=== PATIENT | female | born 1940 | race Hispanic/Latino ===

== ENCOUNTER → 2019-02-18 | Outpatient (CLI) | payer OTHER, MEDICARE ==
[~2019-02-18] MED LIST: OMEP20CA10 PO; ONDA8TAB5 PO; SIMV20TA6 PO
== END | disposition home or self-care (01) ==
LOC: SHCH 15:25
PROVIDERS: ATTEND Internal Medicine Cardiovascular Disease
DX: J44.9 Chronic obstructive pulmonary disease, unspecified (principal); I51.7 Cardiomegaly
CPT/HCPCS: 93306

== ENCOUNTER → 2019-02-20 | Outpatient (CLI) | payer SELFPAY ==
[~2019-02-20] MED LIST changes: +GLYCOPYRROLATE 1 MG/5 ML SYRINGE ONE; +NEOSTIGMINE 5MG/5ML SYR IV ONE
== END | disposition home or self-care (01) ==
LOC: OIH 13:56
PROVIDERS: ATTEND Internal Medicine Cardiovascular Disease
DX: Z13.6 Encounter for screening for cardiovascular disorders (principal)
CPT/HCPCS: 75571; J2710; J3490

== ENCOUNTER 2019-11-09 14:34 | Emergency (ER) | payer OTHER, MEDICARE ==
[~2019-11-09 14:34] MED LIST changes: -GLYCOPYRROLATE 1 MG/5 ML SYRINGE ONE; -NEOSTIGMINE 5MG/5ML SYR IV ONE; -OMEP20CA10 PO; +OMEP20CA12 PO; +SIMV-43 PO; -SIMV20TA6 PO
[2019-11-09 15:13] LABS: BASOPHILS % (AUTO) 0.3 % (0.0-5.0); EOSINOPHILS % (AUTO) 4.5 % (0.0-8.0); HEMATOCRIT 40.1 % (36-48); LYMPHOCYTES % (AUTO) 25.7 % (21.0-51.0); MEAN CORPUSCULAR HEMOGLOBIN 26.8 pg (27.0-33.0); MEAN CORPUSCULAR HGB CONC 32.2 g/dL (32.0-36.0); MEAN CORPUSCULAR VOLUME 83.2 fL (79-99); MONOCYTES % (AUTO) 6.7 % (3.0-13.0); NEUTROPHILS % (AUTO) 62.5 % (40.0-77.0); PLATELET COUNT (AUTO) 298 K/uL (130-400); RED BLOOD CELL COUNT(AUTO) 4.82 MIL/uL (4.00-5.50); RED CELL DISTRIBUTION WIDTH 14.6 % (11.0-15.5); WHITE BLOOD COUNT (AUTO) 11.9 K/uL (4.8-10.8)
[2019-11-09 15:18] LABS: APPEARANCE,URINE Clear (CLEAR); BILIRUBIN,URINE Negative (NEGATIVE); COLOR,URINE Yellow (YELLOW); GLUCOSE, URINE (UA) Negative (NEGATIVE); KETONES,URINE Negative (NEGATIVE); LEUKOCYTE ESTERASE ,URINE Negative (NEGATIVE); NITRATE,URINE Negative (NEGATIVE); OCCULT BLOOD,URINE Negative (NEGATIVE); PROTEIN,URINE Negative (NEGATIVE); UROBILINOGEN,URINE 0.2 mg/dL (0.2-1.0)
[2019-11-09 15:28] LABS: INR 0.95 (0.85-1.15); PARTIAL THROMBOPLASTIN TIME 26.8 SEC (26.3-35.5)
[2019-11-09] MEDS ORDERED: SODIUM CHLORIDE 0.9% 500ML 500 ML IV ONE (15:34)
[2019-11-09] MEDS ORDERED: ONDANSETRON HCL 4 MG/2 ML VIAL ONE (15:34)
[2019-11-09 15:51] LABS: POTASSIUM 4.2 mmol/L (3.5-5.1)
[2019-11-09 15:54] LABS: ALBUMIN 3.6 g/dL (3.5-5.0); BILIRUBIN,TOTAL 0.5 mg/dL (0.2-1.0); TOTAL PROTEIN, SERUM 7.7 g/dL (6.0-8.3)
[2019-11-09] MEDS ORDERED: TETANUS IMMUNE GLOBULIN 250 UNIT SYRINGE IM ONE (17:34)
== END 2019-11-09 19:45 | disposition home or self-care (01) ==
LOC: EDH 14:34
DX: M62.81 Muscle weakness (generalized) (principal); R11.0 Nausea; R10.9 Unspecified abdominal pain; J44.9 Chronic obstructive pulmonary disease, unspecified; E78.5 Hyperlipidemia, unspecified; Z87.891 Personal history of nicotine dependence; Z90.49 Acquired absence of other specified parts of digestive tract; Z98.890 Other specified postprocedural states; Z88.6 Allergy status to analgesic agent; Z88.0 Allergy status to penicillin
CPT/HCPCS: 36415; 71046; 74176; 80053; 81003; 82150; 82550; 83605; 83690; 83880; 84484; 85025; 85610; 85730; 87804 ×2; 93005; 96361; 96374; 99285; J1670; J2405; J7040

== ENCOUNTER 2020-02-04 12:32 | Emergency (ER) | payer OTHER, MEDICARE ==
[2020-02-04 13:48] LABS: BASOPHILS % (AUTO) 0.4 % (0.0-5.0); EOSINOPHILS % (AUTO) 1.8 % (0.0-8.0); HEMATOCRIT 44.7 % (36-48); LYMPHOCYTES % (AUTO) 15.4 % (21.0-51.0); MEAN CORPUSCULAR HEMOGLOBIN 27.3 pg (27.0-33.0); MEAN CORPUSCULAR HGB CONC 33.3 g/dL (32.0-36.0); MONOCYTES % (AUTO) 7.7 % (3.0-13.0); NEUTROPHILS % (AUTO) 74.2 % (40.0-77.0); PLATELET COUNT (AUTO) 260 K/uL (130-400); RED BLOOD CELL COUNT(AUTO) 5.45 MIL/uL (4.00-5.50); RED CELL DISTRIBUTION WIDTH 14.8 % (11.0-15.5); WHITE BLOOD COUNT (AUTO) 11.4 K/uL (4.8-10.8)
[2020-02-04 14:00] LABS: CARBON DIOXIDE 27 mmol/L (21-32); CHLORIDE 93 mmol/L (101-111); CREATININE 1.1 mg/dL (0.5-1.5); GLOMERULAR FILTR. RATE CALC 51 mL/min (>60); GLUCOSE,RANDOM 120 mg/dL (70-105); POTASSIUM 4.2 mmol/L (3.5-5.1); SODIUM SERUM 128 mmol/L (136-145); UREA NITROGEN, BLOOD 7 mg/dL (7-18)
[2020-02-04] MEDS ORDERED: LEVOFLOXACIN 500 MG/D5W 100 ML 100 ML ONE (14:04)
[2020-02-04] MEDS ORDERED: METHYLPREDNISOLONE SOD SUCC 125MG/2ML VIAL ONE (14:04)
[2020-02-04 14:12] LABS: ALANINE AMINOTRANSFERASE 20 U/L (12-78); ALBUMIN 3.6 g/dL (3.5-5.0); ASPARTATE AMINOTRANSFERASE 29 U/L (10-37); BILIRUBIN,TOTAL 0.7 mg/dL (0.2-1.0); CREATINE KINASE, TOTAL 57 U/L (21-232); MYOGLOBIN 55 ng/mL (10-92); TOTAL PROTEIN, SERUM 7.6 g/dL (6.0-8.3); TROPONIN I < 0.04 ng/mL (0.00-0.06)
[2020-02-04 15:00] LABS: INR 1.05 (0.85-1.15); PARTIAL THROMBOPLASTIN TIME 31.7 SEC (26.3-35.5); PROTHROMBIN TIME 11.3 SEC (9.6-11.6)
[2020-02-04 15:13] LABS: ABG BASE EXCESS -0.3 mmol/L (-2.0-3.0); ABG HCO3 22.6 mmol/L (21.0-28.0); ABG OXYGEN SATURATION 97.9 % (95.0-99.0); ABG PCO2 32 mmHg (32-45)
[2020-02-04 15:14] LABS: APPEARANCE,URINE Clear (CLEAR); BILIRUBIN,URINE Negative (NEGATIVE); COLOR,URINE Yellow (YELLOW); GLUCOSE, URINE (UA) Negative (NEGATIVE); KETONES,URINE 15 mg/dL (NEGATIVE); LEUKOCYTE ESTERASE ,URINE Trace (NEGATIVE); NITRATE,URINE Negative (NEGATIVE); OCCULT BLOOD,URINE Negative (NEGATIVE); PROTEIN,URINE Negative (NEGATIVE); UROBILINOGEN,URINE 0.2 mg/dL (0.2-1.0)
[2020-02-04 15:48] LABS: BACTERIA,URINE Rare /HPF (None Seen); SQUAMOUS EPITHELIAL CELL,UR 0-2 /HPF (0-2)
== END 2020-02-04 16:27 | disposition home or self-care (01) ==
LOC: EDH 12:32
DX: J44.1 Chronic obstructive pulmonary disease with (acute) exacerbation (principal); Z20.828 Contact with and (suspected) exposure to other viral communicable diseases; E78.5 Hyperlipidemia, unspecified; Z88.0 Allergy status to penicillin; Z88.6 Allergy status to analgesic agent; Z87.891 Personal history of nicotine dependence
CPT/HCPCS: 36415; 36600; 71045; 80053; 81001; 82550; 82803; 83605; 83874; 84145; 84484; 85025; 85610; 85730; 87040; 87088; 87804 ×2; 93005; 96365; 96375; 99285; J1956; J2930

== ENCOUNTER 2020-10-12 05:23 | Observation (INO) | payer OTHER, MEDICARE ==
[~2020-10-12] VITALS: Ht 160 cm; Wt 78.0 kg
[2020-10-12 05:57] LABS: BASOPHILS % (AUTO) 0.6 % (0.0-5.0); EOSINOPHILS % (AUTO) 4.3 % (0.0-8.0); HEMATOCRIT 35.7 % (36-48); LYMPHOCYTES % (AUTO) 27.2 % (21.0-51.0); MEAN CORPUSCULAR HEMOGLOBIN 26.5 pg (27.0-33.0); MEAN CORPUSCULAR HGB CONC 33.3 g/dL (32.0-36.0); MEAN CORPUSCULAR VOLUME 79.5 fL (79-99); MONOCYTES % (AUTO) 9.2 % (3.0-13.0); PLATELET COUNT (AUTO) 262 K/uL (130-400); RED BLOOD CELL COUNT(AUTO) 4.49 MIL/uL (4.00-5.50); RED CELL DISTRIBUTION WIDTH 14.1 % (11.0-15.5); WHITE BLOOD COUNT (AUTO) 8.3 K/uL (4.8-10.8)
[2020-10-12] MEDS ORDERED: FUROSEMIDE 10 MG/ML 2ML VIAL ONE (06:18)
[2020-10-12 06:25] LABS: ALBUMIN 3.5 g/dL (3.5-5.0); BILIRUBIN,TOTAL 0.4 mg/dL (0.2-1.0); POTASSIUM 4.2 mmol/L (3.5-5.1); THYROID STIMULATING HORMONE 5.74 uIU/mL (0.36-3.74); TOTAL PROTEIN, SERUM 7.3 g/dL (6.0-8.3)
[2020-10-12 06:28] LABS: ABG BASE EXCESS -3.1 mmol/L (-2.0-3.0); ABG HCO3 21.4 mmol/L (21.0-28.0); ABG OXYGEN SATURATION 94.9 % (95.0-99.0); ABG PCO2 37 mmHg (32-45)
[2020-10-12 06:36] LABS: PROTHROMBIN TIME 10.7 SEC (9.6-11.6)
[2020-10-12 06:37] LABS: PARTIAL THROMBOPLASTIN TIME 29.4 SEC (26.3-35.5)
[2020-10-12 06:51] LABS: APPEARANCE,URINE CLEAR (CLEAR); BILIRUBIN,URINE NEGATIVE (NEGATIVE); COLOR,URINE YELLOW (YELLOW); GLUCOSE, URINE (UA) NEGATIVE (NEGATIVE); KETONES,URINE 5 mg/dL (NEGATIVE); LEUKOCYTE ESTERASE ,URINE NEGATIVE (NEGATIVE); NITRATE,URINE NEGATIVE (NEGATIVE); OCCULT BLOOD,URINE NEGATIVE (NEGATIVE); PH,URINE 5.5 (5.0-8.0); PROTEIN,URINE NEGATIVE (NEGATIVE); UROBILINOGEN,URINE 0.2 mg/dL (0.2-1.0)
[2020-10-12 06:57] LABS: BACTERIA,URINE None Seen /HPF (None Seen); RBC,URINE 0-1 /HPF (0-1); SQUAMOUS EPITHELIAL CELL,UR 0-2 /HPF (0-2); WBC,URINE 0-1 /HPF (0-1)
[2020-10-12] MEDS ORDERED: IOHEXOL-350 75 ML VIAL IV ONE (08:59)
[2020-10-12] MEDS ORDERED: SODIUM CHLORIDE 0.9% 1000ML 1,000 ML IV ONE (09:43)
[2020-10-12] MEDS ORDERED: ACETAMINOPHEN 325 MG TAB PO PRN (13:00)
[2020-10-12] MEDS ORDERED: DOCUSATE SODIUM 100 MG CAP PO SCH (13:00)
[2020-10-12] MEDS ORDERED: ONDANSETRON 4 MG TABLET PO PRN (13:00)
[2020-10-12] MEDS: PANTOPRAZOLE SODIUM 40 MG TABLET.DR PO SCH (13:00)
[2020-10-12] MEDS: AZITHROMYCIN 250 MG TABLET PO SCH (13:00)
[2020-10-12] MEDS: SODIUM CHLORIDE 0.9% 1000ML 1,000 ML IV SCH ×2 (13:00→23:00)
[2020-10-12] MEDS ORDERED: DOCUSATE SODIUM 100 MG CAP PO ONE (14:06)
[2020-10-12] MEDS ORDERED: AZITHROMYCIN 250 MG TABLET PO ONE (14:07)
[2020-10-12] MEDS ORDERED: PANTOPRAZOLE SODIUM 40 MG TABLET.DR ONE (14:07)
[2020-10-12] MEDS ORDERED: ONDANSETRON 4 MG TABLET ONE ×2 (14:08→17:30)
[2020-10-12] MEDS: DOCUSATE SODIUM 100 MG CAP PO SCH ×2 (15:15→16:00)
[2020-10-13 06:04] LABS: HEMATOCRIT 38.4 % (36-48); MEAN CORPUSCULAR HEMOGLOBIN 26.7 pg (27.0-33.0); MEAN CORPUSCULAR HGB CONC 33.3 g/dL (32.0-36.0); RED BLOOD CELL COUNT(AUTO) 4.8 MIL/uL (4.00-5.50); RED CELL DISTRIBUTION WIDTH 14.2 % (11.0-15.5); WHITE BLOOD COUNT (AUTO) 8.9 K/uL (4.8-10.8)
[2020-10-13 06:28] LABS: POTASSIUM 3.8 mmol/L (3.5-5.1)
[2020-10-13] MEDS ORDERED: GABA-529 PO (08:57)
[2020-10-13] MEDS ORDERED: vitamin d3 PO (08:57)
[2020-10-13] MEDS ORDERED: ESOM20CA39 PO (08:57)
[2020-10-13] MEDS ORDERED: HYOS-14 PO (08:57)
[2020-10-13] MEDS ORDERED: LEVO25CA4 PO (08:57)
[2020-10-13] MEDS ORDERED: PRED10TA3 PO (08:57)
[2020-10-13] MEDS ORDERED: ALBU2.5V2 IH (08:57)
[2020-10-13] MEDS ORDERED: FURO20TA4 PO (08:57)
[2020-10-13] MEDS ORDERED: DOCUSATE PO (08:57)
[2020-10-13] MEDS ORDERED: SIME125C81 PO (08:57)
[2020-10-13] MEDS ORDERED: BISA5TAB12 PO (08:57)
[2020-10-13] MEDS ORDERED: MECL-184 PO (08:57)
[2020-10-13] MEDS ORDERED: SIMV-43 PO (08:57)
[2020-10-13] MEDS ORDERED: [UNRECOGNIZED DRUG - OTHER] PO (08:57)
[2020-10-13] MEDS ORDERED: ONDA-104 PO (08:57)
[2020-10-13] MEDS ORDERED: MELO-106 PO (08:57)
[2020-10-13] MEDS ORDERED: SENNOSIDES PO (08:57)
[2020-10-13] MEDS ORDERED: vitamin b12 PO (08:57)
[2020-10-13] MEDS ORDERED: GUAI400T93 PO (08:57)
[2020-10-13] MEDS ORDERED: FLUT1AER IH (08:57)
[2020-10-13] MEDS ORDERED: BENZ200C53 PO (08:57)
[2020-10-13] MEDS ORDERED: SEPTRA DS PO (08:57)
[2020-10-13] MEDS: PANTOPRAZOLE SODIUM 40 MG TABLET.DR PO SCH (09:00)
[2020-10-13] MEDS: SODIUM CHLORIDE 0.9% 1000ML 1,000 ML IV SCH ×2 (09:00→19:00)
[2020-10-13] MEDS: ENOXAPARIN SODIUM 30 MG/0.3 ML SQ SCH (09:00)
[2020-10-13] MEDS ORDERED: FAMOTIDINE 20MG TAB 20 MG TAB ONE (09:01)
[2020-10-13] MEDS ORDERED: ENOXAPARIN SODIUM 30 MG/0.3 ML SQ ONE (09:01)
[2020-10-13] MEDS: AZITHROMYCIN 250 MG TABLET PO SCH (13:00)
[2020-10-13] MEDS: DOCUSATE SODIUM 100 MG CAP PO SCH (16:00)
[2020-10-13] MEDS ORDERED: DOCUSATE SODIUM 100 MG CAP PO ONE (18:17)
[2020-10-13] MEDS ORDERED: AZITHROMYCIN 250 MG TABLET PO ONE (18:18)
[2020-10-13 21:02] VITALS: BP 158/84
[2020-10-13 23:53] VITALS: BP 155/96
[2020-10-14 04:04] VITALS: BP 126/71
[2020-10-14 08:15] VITALS: BP 128/77
[2020-10-14] MEDS: PANTOPRAZOLE SODIUM 40 MG TABLET.DR PO SCH (08:34)
[2020-10-14] MEDS: ENOXAPARIN SODIUM 30 MG/0.3 ML SQ SCH (08:37)
[2020-10-14] MEDS: SODIUM CHLORIDE 0.9% 1000ML 1,000 ML IV SCH (09:44)
[2020-10-14 10:10] LABS: POTASSIUM 3.7 mmol/L (3.5-5.1)
[2020-10-14 11:00] VITALS: BP 135/89
[2020-10-14 12:00] VITALS: BP 131/82
[2020-10-14] MEDS: AZITHROMYCIN 250 MG TABLET PO SCH (14:10)
== END 2020-10-14 14:30 | disposition home or self-care (01) ==
LOC: EDH 05:23 → EDHIP 12:48 → 2DH 10-13 20:06 → 4DH 10-14 10:47
PROVIDERS: ADMIT Internal Medicine; ATTEND Internal Medicine
DX: E87.1 Hypo-osmolality and hyponatremia (principal); Z20.828 Contact with and (suspected) exposure to other viral communicable diseases; R10.11 Right upper quadrant pain; E03.9 Hypothyroidism, unspecified; J44.9 Chronic obstructive pulmonary disease, unspecified; J84.10 Pulmonary fibrosis, unspecified; E78.5 Hyperlipidemia, unspecified; E66.9 Obesity, unspecified; N28.1 Cyst of kidney, acquired; E87.8 Other disorders of electrolyte and fluid balance, not elsewhere classified; Z99.81 Dependence on supplemental oxygen; Z90.49 Acquired absence of other specified parts of digestive tract; Z79.899 Other long term (current) drug therapy; Z88.0 Allergy status to penicillin; Z88.6 Allergy status to analgesic agent; Z68.30 Body mass index [BMI] 30.0-30.9, adult
CPT/HCPCS: 36415 ×3; 36600; 71045; 74177; 76705; 80048 ×2; 80053; 81001; 82803; 82948 ×2; 83605; 83690; 83880; 84443; 84484; 85025; 85027; 85610; 85730; 87040 ×2; 87426; 87804 ×2; 93005; 96360; 96361; 96372; 99285; G0378 ×49; J1650 ×2; J1940; J7030; Q0162 ×2; Q9967; U0003

== ENCOUNTER 2021-01-09 12:52 | Emergency (ER) | payer OTHER, MEDICARE ==
[~2021-01-09 12:52] MED LIST changes: +ALBU2.5V2 IH; +BENZ200C53 PO; +BISA5TAB12 PO; +DOCUSATE PO; +ESOM20CA39 PO; +FLUT1AER IH; +GABA-529 PO; +HYOS-14 PO; +LEVO25CA4 PO; +MECL-226 PO; +MELO-106 PO; -OMEP20CA12 PO; +ONDA-104 PO; -ONDA8TAB5 PO; +PRED10TA3 PO; +SENNOSIDES PO; +SIME125C81 PO; +[UNRECOGNIZED DRUG - CODE] PO; +vitamin b12 PO; +vitamin d3 PO
[2021-01-09] MEDS ORDERED: HYDROCODONE/ACETAMINOPHEN 5/325 MG TAB ONE (13:17)
[2021-01-09] MEDS ORDERED: CYCLOBENZAPRINE HCL 10 MG TABLET ONE (13:17)
[2021-01-09 13:18] LABS: BASOPHILS % (AUTO) 0.3 % (0.0-5.0); EOSINOPHILS % (AUTO) 2.2 % (0.0-8.0); HEMATOCRIT 40.8 % (36-48); LYMPHOCYTES % (AUTO) 17.6 % (21.0-51.0); MEAN CORPUSCULAR HEMOGLOBIN 27.2 pg (27.0-33.0); MEAN CORPUSCULAR HGB CONC 32.6 g/dL (32.0-36.0); MEAN CORPUSCULAR VOLUME 83.4 fL (79-99); MONOCYTES % (AUTO) 7.5 % (3.0-13.0); NEUTROPHILS % (AUTO) 71.5 % (40.0-77.0); PLATELET COUNT (AUTO) 254 K/uL (130-400); RED BLOOD CELL COUNT(AUTO) 4.89 MIL/uL (4.00-5.50); RED CELL DISTRIBUTION WIDTH 15.8 % (11.0-15.5); WHITE BLOOD COUNT (AUTO) 14.5 K/uL (4.8-10.8)
[2021-01-09 13:31] LABS: CREATININE 1.3 mg/dL (0.5-1.5); POTASSIUM 3.8 mmol/L (3.5-5.1); PROTHROMBIN TIME 10.9 SEC (9.6-11.6)
[2021-01-09 13:32] LABS: PARTIAL THROMBOPLASTIN TIME 24.7 SEC (26.3-35.5)
[2021-01-09 13:35] LABS: ALBUMIN 3.6 g/dL (3.5-5.0); BILIRUBIN,TOTAL 0.5 mg/dL (0.2-1.0); TOTAL PROTEIN, SERUM 7.5 g/dL (6.0-8.3)
[2021-01-09 13:48] LABS: B-TYPE NATRIURETIC PEPTIDE 56 pg/mL (0-100)
[2021-01-09] MEDS ORDERED: IOHEXOL-350 75 ML VIAL IV ONE (15:53)
[2021-01-09 15:59] LABS: APPEARANCE,URINE Clear (CLEAR); BILIRUBIN,URINE Negative (NEGATIVE); COLOR,URINE Yellow (YELLOW); GLUCOSE, URINE (UA) Negative (NEGATIVE); KETONES,URINE Negative (NEGATIVE); LEUKOCYTE ESTERASE ,URINE Negative (NEGATIVE); NITRATE,URINE Negative (NEGATIVE); OCCULT BLOOD,URINE Negative (NEGATIVE); PROTEIN,URINE Negative (NEGATIVE); UROBILINOGEN,URINE 0.2 mg/dL (0.2-1.0)
== END 2021-01-09 17:47 | disposition home or self-care (01) ==
LOC: EDH 12:52
DX: M94.0 Chondrocostal junction syndrome [Tietze] (principal); Z20.822 Contact with and (suspected) exposure to COVID-19; J44.9 Chronic obstructive pulmonary disease, unspecified; E78.5 Hyperlipidemia, unspecified; Z90.49 Acquired absence of other specified parts of digestive tract; Z98.890 Other specified postprocedural states; Z88.0 Allergy status to penicillin; Z88.2 Allergy status to sulfonamides; Z88.6 Allergy status to analgesic agent
CPT/HCPCS: 36415; 71045; 71275; 80053; 81003; 82550; 83690; 83880; 84484 ×2; 85025; 85610; 85730; 87426; 87804 ×2; 93005; 99285; Q9967; U0003

== ENCOUNTER 2021-06-22 11:46 | Inpatient (IN) | payer OTHER, MEDICARE ==
[~2021-06-22] VITALS: Ht 165.1 cm; Wt 79.8 kg
[2021-06-22 12:44] LABS: HEMATOCRIT 42.7 % (36-48); MEAN CORPUSCULAR HEMOGLOBIN 29.3 pg (27.0-33.0); MEAN CORPUSCULAR HGB CONC 33.3 g/dL (32.0-36.0); PLATELET COUNT (AUTO) 196 K/uL (130-400); RED BLOOD CELL COUNT(AUTO) 4.85 MIL/uL (4.00-5.50); RED CELL DISTRIBUTION WIDTH 17.2 % (11.0-15.5); WHITE BLOOD COUNT (AUTO) 14.4 K/uL (4.8-10.8)
[2021-06-22 12:59] LABS: CREATININE 1.1 mg/dL (0.5-1.5); POTASSIUM 3.8 mmol/L (3.5-5.1)
[2021-06-22 13:03] LABS: ALBUMIN 2.6 g/dL (3.5-5.0); BILIRUBIN,TOTAL 0.7 mg/dL (0.2-1.0)
[2021-06-22 13:20] LABS: B-TYPE NATRIURETIC PEPTIDE 69 pg/mL (0-100)
[2021-06-22 13:33] LABS: ABG BASE EXCESS 3.3 mmol/L (-2.0-3.0); ABG HCO3 26.4 mmol/L (21.0-28.0); ABG PCO2 36 mmHg (32-45)
[2021-06-22 14:03] LABS: BASOPHILS % (MANUAL) 1 % (0-2); EOSINOPHILS % (MANUAL) 1 % (1-6); LYMPHOCYTES % (MANUAL) 20 % (22-44); MAN.DIFF COMMENT-IMPRESSION MANUAL DIFFERENTIAL; MONOCYTES % (MANUAL) 9 % (2-9); PLATELET MORPHOLOGY COMMENT ADEQUATE; REACTIVE LYMPHOCYTES 1 % (0-0); SEGMENTED NEUTROPHILS % 68 % (40-70)
[2021-06-22] MEDS ORDERED: HEPARIN 25,000 UNITS/250ML D5W 250 ML IV SCH (15:30)
[2021-06-22] MEDS ORDERED: HEPARIN 5,000 UNIT VIAL SQ PRN (15:30)
[2021-06-22] MEDS ORDERED: FAMOTIDINE 20MG VIAL IV SCH (16:17)
[2021-06-22] MEDS ORDERED: MAGNESIUM 2GM PREMIX 50ML 50 ML IV PRN (16:30)
[2021-06-22] MEDS ORDERED: KCL 20 MEQ ERTAB PO PRN (16:30)
[2021-06-22] MEDS ORDERED: DEXTROSE 50%-WATER 50 ML DISP.SYRIN IV PRN (16:30)
[2021-06-22] MEDS: INSULIN HUMULIN R 100 UNIT/ML 3ML SQ SCH ×2 (16:30→21:08)
[2021-06-22] MEDS ORDERED: POTASSIUM CHLORIDE 20MEQ/100ML 100 ML IV PRN ×2 (16:30)
[2021-06-22] MEDS ORDERED: LIDOCAINE HCL-MPF 1% 2ML VIAL IV PRN ×2 (16:30)
[2021-06-22] MEDS ORDERED: POTASSIUM CHLORIDE 10% ELIXIR 20 MEQ/15 ML UDCUP PO PRN (16:30)
[2021-06-22] MEDS ORDERED: GLUCAGON 1MG KIT 1 MG ML IM PRN (16:30)
[2021-06-22] MEDS: FAMOTIDINE 20MG VIAL IV SCH (16:55)
[2021-06-22] MEDS: SOLU-MEDROL 125MG VIAL IVP SCH (16:55)
[2021-06-22] MEDS ORDERED: PHARMACY COMMUNICATION MISC SCH (17:00)
[2021-06-22] MEDS ORDERED: ASPIRIN 325MG TAB PO ONE (17:07)
[2021-06-22] MEDS: 0.9% NACL 250ML IVPB SCH (17:27)
[2021-06-22] MEDS: DOXYCYCLINE 100MG+NS 250ML IV SCH (17:27)
[2021-06-22] MEDS: IPRATROPIUM 0.5 MG/2.5 ML INH IH SCH ×2 (18:46→22:00)
[2021-06-22] MEDS: BUDESONIDE 0.5 MG/2 ML INH IH SCH (18:47)
[2021-06-22] MEDS ORDERED: ACETAMINOPHEN 325 MG TAB PO PRN (19:00)
[2021-06-22] MEDS ORDERED: ONDANSETRON 4MG TABLET PO PRN (19:00)
[2021-06-22] MEDS ORDERED: BISACODYL 5 MG TABLET.DR PO PRN (19:00)
[2021-06-22] MEDS: GABAPENTIN 100 MG CAPSULE PO SCH (21:07)
[2021-06-22] MEDS: SIMVASTATIN 20 MG TABLET PO SCH (21:08)
[2021-06-22] MEDS: ENOXAPARIN SODIUM 40 MG/0.4 ML SYRINGE SQ SCH (21:08)
[2021-06-22 22:15] LABS: BASOPHILS % (AUTO) 0.5 % (0.0-5.0); HEMATOCRIT 40.1 % (36-48); LYMPHOCYTES % (AUTO) 11.7 % (21.0-51.0); MEAN CORPUSCULAR HEMOGLOBIN 29.4 pg (27.0-33.0); MEAN CORPUSCULAR HGB CONC 33.2 g/dL (32.0-36.0); MEAN CORPUSCULAR VOLUME 88.5 fL (79-99); MONOCYTES % (AUTO) 0.9 % (3.0-13.0); NEUTROPHILS % (AUTO) 84.5 % (40.0-77.0); PLATELET COUNT (AUTO) 167 K/uL (130-400); RED BLOOD CELL COUNT(AUTO) 4.53 MIL/uL (4.00-5.50); WHITE BLOOD COUNT (AUTO) 8.8 K/uL (4.8-10.8)
[2021-06-22] MEDS ORDERED: HYDR-3421 PO (22:19)
[2021-06-22] MEDS ORDERED: LORA10TA7 PO (22:19)
[2021-06-22] MEDS ORDERED: NINT100C PO (22:19)
[2021-06-23 00:15] VITALS: BP 131/68
[2021-06-23] MEDS: SOLU-MEDROL 125MG VIAL IVP SCH (00:21)
[2021-06-23] MEDS: IPRATROPIUM 0.5 MG/2.5 ML INH IH SCH ×6 (01:59→23:41)
[2021-06-23 04:00] VITALS: BP 138/68
[2021-06-23] MEDS: DOXYCYCLINE 100MG+NS 250ML IV SCH ×2 (04:44→17:05)
[2021-06-23] MEDS: 0.9% NACL 250ML IVPB SCH ×2 (04:44→17:06)
[2021-06-23 04:53] LABS: HEMATOCRIT 40.4 % (36-48); MEAN CORPUSCULAR HEMOGLOBIN 28.7 pg (27.0-33.0); MEAN CORPUSCULAR HGB CONC 32.9 g/dL (32.0-36.0); MEAN CORPUSCULAR VOLUME 87.3 fL (79-99); RED BLOOD CELL COUNT(AUTO) 4.63 MIL/uL (4.00-5.50)
[2021-06-23 05:02] LABS: CREATININE 0.9 mg/dL (0.5-1.5); POTASSIUM 4.6 mmol/L (3.5-5.1)
[2021-06-23 05:17] LABS: THYROID STIMULATING HORMONE 0.34 uIU/mL (0.36-3.74)
[2021-06-23] MEDS: BUDESONIDE 0.5 MG/2 ML INH IH SCH ×2 (06:40→18:00)
[2021-06-23] MEDS: LEVOTHYROXINE 25 MCG TABLET PO SCH (06:42)
[2021-06-23] MEDS: INSULIN HUMULIN R 100 UNIT/ML 3ML SQ SCH ×4 (06:55→20:41)
[2021-06-23 07:30] VITALS: BP 137/69
[2021-06-23] MEDS: GABAPENTIN 100 MG CAPSULE PO SCH ×3 (08:27→20:06)
[2021-06-23] MEDS: FAMOTIDINE 20MG VIAL IV SCH (08:27)
[2021-06-23] MEDS: ASPIRIN 81 MG EC TAB PO SCH (08:27)
[2021-06-23] MEDS: ENOXAPARIN SODIUM 40 MG/0.4 ML SYRINGE SQ SCH ×2 (08:28→20:06)
[2021-06-23] MEDS: SOLU-MEDROL 40MG VIAL IVP SCH ×3 (09:00→20:07)
[2021-06-23 11:00] VITALS: BP 137/80
[2021-06-23] MEDS ORDERED: HYDROXYZINE 25 MG TABLET ONE (11:37)
[2021-06-23] MEDS: HYDROXYZINE 25 MG TABLET PO SCH (11:39)
[2021-06-23 16:00] VITALS: BP 132/89
[2021-06-23] MEDS: FLUTICASONE PROPIONATE 50MCG/SPRAY 16 GM BOTTLE EN SCH ×2 (18:32→19:18)
[2021-06-23 20:03] VITALS: BP 151/81
[2021-06-23] MEDS: SIMVASTATIN 20 MG TABLET PO SCH (20:06)
[2021-06-23] MEDS: OFEV 100 MG PO SCH (20:07)
[2021-06-24 00:17] VITALS: BP 145/92
[2021-06-24] MEDS: IPRATROPIUM 0.5 MG/2.5 ML INH IH SCH ×3 (02:33→09:31)
[2021-06-24 04:00] VITALS: BP 147/92
[2021-06-24] MEDS: 0.9% NACL 250ML IVPB SCH (04:12)
[2021-06-24] MEDS: DOXYCYCLINE 100MG+NS 250ML IV SCH (04:12)
[2021-06-24 04:43] LABS: HEMATOCRIT 38.7 % (36-48); MEAN CORPUSCULAR HEMOGLOBIN 29.2 pg (27.0-33.0); MEAN CORPUSCULAR HGB CONC 33.1 g/dL (32.0-36.0); MEAN CORPUSCULAR VOLUME 88.4 fL (79-99); RED BLOOD CELL COUNT(AUTO) 4.38 MIL/uL (4.00-5.50); WHITE BLOOD COUNT (AUTO) 15.3 K/uL (4.8-10.8)
[2021-06-24 04:53] LABS: CREATININE 0.9 mg/dL (0.5-1.5); POTASSIUM 4.3 mmol/L (3.5-5.1)
[2021-06-24] MEDS: BUDESONIDE 0.5 MG/2 ML INH IH SCH (06:00)
[2021-06-24] MEDS: INSULIN HUMULIN R 100 UNIT/ML 3ML SQ SCH ×2 (06:09→11:30)
[2021-06-24] MEDS: LEVOTHYROXINE 25 MCG TABLET PO SCH (06:39)
[2021-06-24] MEDS: HYDROXYZINE 25 MG TABLET PO SCH (06:39)
[2021-06-24 08:14] VITALS: BP_SYST 126; BP_SYST 147; BP_DIAS 59; BP_DIAS 81
[2021-06-24] MEDS ORDERED: LORATADINE 10 MG TABLET PO SCH (09:00)
[2021-06-24] MEDS: OFEV 100 MG PO SCH (09:00)
[2021-06-24 09:56] LABS: APPEARANCE,URINE Clear (CLEAR); BILIRUBIN,URINE Negative (NEGATIVE); COLOR,URINE Yellow (YELLOW); GLUCOSE, URINE (UA) Negative (NEGATIVE); KETONES,URINE Negative (NEGATIVE); LEUKOCYTE ESTERASE ,URINE Moderate (NEGATIVE); NITRATE,URINE Negative (NEGATIVE); OCCULT BLOOD,URINE Negative (NEGATIVE); PH,URINE 5.5 (5.0-8.0); PROTEIN,URINE Negative (NEGATIVE)
[2021-06-24 10:17] LABS: BACTERIA,URINE Few /HPF (None Seen); RBC,URINE 0-1 /HPF (0-1); SQUAMOUS EPITHELIAL CELL,UR Few /HPF (0-2)
[2021-06-24] MEDS: FAMOTIDINE 20MG VIAL IV SCH (10:41)
[2021-06-24] MEDS: GABAPENTIN 100 MG CAPSULE PO SCH ×2 (10:41→14:00)
[2021-06-24] MEDS: ASPIRIN 81 MG EC TAB PO SCH (10:41)
[2021-06-24] MEDS: SOLU-MEDROL 40MG VIAL IVP SCH (10:41)
[2021-06-24] MEDS: ENOXAPARIN SODIUM 40 MG/0.4 ML SYRINGE SQ SCH (10:41)
[2021-06-24] MEDS: FLUTICASONE PROPIONATE 50MCG/SPRAY 16 GM BOTTLE EN SCH (10:42)
[2021-06-24 11:39] VITALS: BP 137/89
== END 2021-06-24 14:45 | disposition home or self-care (01) | DRG 189 ==
LOC: EDH 11:46 → OBSVTOIN 16:27 → EDHIP 16:27 → 3CH 21:48
PROVIDERS: ADMIT Internal Medicine; ATTEND Internal Medicine
PROC: 5A09357 Assistance with Respiratory Ventilation, Less than 24 Consecutive Hours, Continuous Positive Airway Pressure (ICD-10-PCS; principal; 2021-06-22)
DX: J96.01 Acute respiratory failure with hypoxia (principal); J44.1 Chronic obstructive pulmonary disease with (acute) exacerbation; J98.11 Atelectasis; F32.9 Major depressive disorder, single episode, unspecified; K21.9 Gastro-esophageal reflux disease without esophagitis; Z20.822 Contact with and (suspected) exposure to COVID-19; D72.829 Elevated white blood cell count, unspecified; J84.10 Pulmonary fibrosis, unspecified; E78.5 Hyperlipidemia, unspecified; E66.9 Obesity, unspecified; E03.9 Hypothyroidism, unspecified; E78.00 Pure hypercholesterolemia, unspecified; R77.8 Other specified abnormalities of plasma proteins; I10 Essential (primary) hypertension; Z68.31 Body mass index [BMI] 31.0-31.9, adult; Z79.51 Long term (current) use of inhaled steroids; Z79.52 Long term (current) use of systemic steroids; Z79.890 Hormone replacement therapy; Z79.899 Other long term (current) drug therapy; Z87.440 Personal history of urinary (tract) infections; Z88.0 Allergy status to penicillin; Z87.891 Personal history of nicotine dependence; Z99.81 Dependence on supplemental oxygen
CPT/HCPCS: 36415; 36600; 71045; 71250; 80048; 80053; 81001; 82435; 82803; 82947; 82948; 83605; 83880; 84132; 84145; 84295; 84443; 84484; 85018; 85025; 85027; 85378; 85730; 86140; 87040; 87077; 87088; 87186; 87635; 87804; 93005; 93306; 93970; 94640; 94660; 94664; 97039; G0378; J1644; J1650; J1815; J2920; J2930; J3490; J7050

== ENCOUNTER 2021-08-01 09:46 | Inpatient (IN) | payer OTHER, MEDICARE ==
[~2021-08-01] VITALS: Ht 167.6 cm; Wt 77.1 kg
[~2021-08-01 09:46] MED LIST changes: +HYDR-3421 PO; +LORA10TA7 PO; +NINT100C PO
[2021-08-01] MEDS ORDERED: NEOMY SULF/BACITRA/POLYMYXIN B 1 EACH PACKET TP ONE (10:22)
[2021-08-01 11:36] LABS: BASOPHILS % (AUTO) 0.5 % (0.0-5.0); HEMATOCRIT 47.1 % (36-48); LYMPHOCYTES % (AUTO) 14.6 % (21.0-51.0); MEAN CORPUSCULAR HEMOGLOBIN 30.4 pg (27.0-33.0); MEAN CORPUSCULAR HGB CONC 33.1 g/dL (32.0-36.0); MEAN CORPUSCULAR VOLUME 91.8 fL (79-99); MONOCYTES % (AUTO) 5.1 % (3.0-13.0); NEUTROPHILS % (AUTO) 77.5 % (40.0-77.0); PLATELET COUNT (AUTO) 258 K/uL (130-400); RED BLOOD CELL COUNT(AUTO) 5.13 MIL/uL (4.00-5.50); RED CELL DISTRIBUTION WIDTH 16.7 % (11.0-15.5); WHITE BLOOD COUNT (AUTO) 17.7 K/uL (4.8-10.8)
[2021-08-01 11:48] LABS: INR 0.95 (0.85-1.15); PROTHROMBIN TIME 10.4 SEC (9.6-11.6)
[2021-08-01 11:50] LABS: ALBUMIN 3.3 g/dL (3.5-5.0); BILIRUBIN,TOTAL 0.8 mg/dL (0.2-1.0); MAGNESIUM 1.9 mg/dL (1.80-2.40); PARTIAL THROMBOPLASTIN TIME 24.5 SEC (26.3-35.5)
[2021-08-01] MEDS ORDERED: VANCOMYCIN 1G VIAL IVPB ONE (12:30)
[2021-08-01] MEDS ORDERED: LACTULOSE 20 GM/30 ML UDCUP PO PRN (12:30)
[2021-08-01] MEDS ORDERED: SOLU-MEDROL 125MG VIAL IVP ONE (12:30)
[2021-08-01] MEDS ORDERED: ONDANSETRON 4MG INJ IVP PRN (12:30)
[2021-08-01] MEDS ORDERED: CEFEPIME HCL 2 GM VIAL IVP SCH (12:30)
[2021-08-01] MEDS ORDERED: ACETAMINOPHEN 650 MG SUPPOSITORY RC PRN (12:30)
[2021-08-01] MEDS ORDERED: CLONIDINE HCL 0.1 MG TABLET PO PRN (12:30)
[2021-08-01] MEDS ORDERED: IPRATROPIUM/ALBUTEROL SULFATE 3 ML SOLUTION IH ONE (12:30)
[2021-08-01] MEDS ORDERED: 0.9%NACL 1000ML 1,000 ML IV SCH (12:30)
[2021-08-01] MEDS ORDERED: TEMAZEPAM 15 MG CAPSULE PO PRN (12:30)
[2021-08-01] MEDS ORDERED: VANCOMYCIN PROTOCOL PER PHARMACY IV SCH (12:30)
[2021-08-01] MEDS ORDERED: HYDRALAZINE 20MG/ML VIAL IV PRN (12:30)
[2021-08-01] MEDS ORDERED: ACETAMINOPHEN 325 MG TAB PO PRN (12:30)
[2021-08-01] MEDS ORDERED: FLUT1BLS3 IH (12:48)
[2021-08-01] MEDS ORDERED: VANCOMYCIN 1.25GM/NS 250ML IVPB ONE ×2 (13:00)
[2021-08-01 13:10] LABS: ABG BASE EXCESS 0.9 mmol/L (-2.0-3.0); ABG HCO3 23.9 mmol/L (21.0-28.0); ABG OXYGEN SATURATION 82.5 % (95.0-99.0); ABG PCO2 34 mmHg (32-45)
[2021-08-01 13:11] LABS: APPEARANCE,URINE Clear (CLEAR); BILIRUBIN,URINE Negative (NEGATIVE); COLOR,URINE Yellow (YELLOW); GLUCOSE, URINE (UA) Negative (NEGATIVE); KETONES,URINE Negative (NEGATIVE); LEUKOCYTE ESTERASE ,URINE Trace (NEGATIVE); NITRATE,URINE Negative (NEGATIVE); OCCULT BLOOD,URINE Negative (NEGATIVE); PH,URINE 6.5 (5.0-8.0); PROTEIN,URINE Negative (NEGATIVE)
[2021-08-01 13:44] LABS: BACTERIA,URINE Rare /HPF (None Seen); RBC,URINE 0-1 /HPF (0-1); SQUAMOUS EPITHELIAL CELL,UR Rare /HPF (0-2)
[2021-08-01] MEDS ORDERED: IOHEXOL-350 75 ML VIAL IV ONE (15:15)
[2021-08-01] MEDS ORDERED: FUROSEMIDE 20MG VIAL IV ONE (15:20)
[2021-08-01] MEDS: INSULIN HUMULIN R 100 UNIT/ML 3ML SQ SCH ×2 (16:29→20:35)
[2021-08-01] MEDS: VANCOMYCIN 500MG+NS 100ML IVPB IV SCH (18:06)
[2021-08-01] MEDS: IPRATROPIUM/ALBUTEROL SULFATE 3 ML SOLUTION IH SCH ×2 (19:26→23:18)
[2021-08-01 21:16] LABS: ABG BASE EXCESS -0.8 mmol/L (-2.0-3.0); ABG HCO3 22.2 mmol/L (21.0-28.0); ABG OXYGEN SATURATION 94.6 % (95.0-99.0); ABG PCO2 32 mmHg (32-45)
[2021-08-01] MEDS ORDERED: METRONIDAZOLE 500MG/100ML BAG 100 ML IVPB SCH (22:00)
[2021-08-01] MEDS: SOLU-MEDROL 40MG VIAL IVP SCH (22:08)
[2021-08-01] MEDS: METRONIDAZOLE 500 MG TABLET PO SCH (22:08)
[2021-08-01] MEDS ORDERED: SODIUM CHLORIDE 3% FOR INHALATION 4 ML/AMP VIAL.NEB IH ONE (23:41)
[2021-08-02] MEDS: INSULIN HUMULIN R 100 UNIT/ML 3ML SQ SCH ×4 (06:08→21:00)
[2021-08-02] MEDS: VANCOMYCIN 500MG+NS 100ML IVPB IV SCH ×2 (06:12→17:00)
[2021-08-02] MEDS: METRONIDAZOLE 500 MG TABLET PO SCH ×3 (06:12→21:42)
[2021-08-02 06:23] LABS: BASOPHILS % (AUTO) 0.2 % (0.0-5.0); HEMATOCRIT 40.4 % (36-48); LYMPHOCYTES % (AUTO) 9.3 % (21.0-51.0); MEAN CORPUSCULAR HEMOGLOBIN 29.9 pg (27.0-33.0); MEAN CORPUSCULAR HGB CONC 32.9 g/dL (32.0-36.0); MEAN CORPUSCULAR VOLUME 90.8 fL (79-99); MONOCYTES % (AUTO) 2.8 % (3.0-13.0); NEUTROPHILS % (AUTO) 86.7 % (40.0-77.0); PLATELET COUNT (AUTO) 256 K/uL (130-400); RED BLOOD CELL COUNT(AUTO) 4.45 MIL/uL (4.00-5.50); RED CELL DISTRIBUTION WIDTH 16.2 % (11.0-15.5); WHITE BLOOD COUNT (AUTO) 13.9 K/uL (4.8-10.8)
[2021-08-02] MEDS: IPRATROPIUM/ALBUTEROL SULFATE 3 ML SOLUTION IH SCH ×3 (06:28→18:41)
[2021-08-02 06:35] LABS: MAGNESIUM 2.1 mg/dL (1.80-2.40); PHOSPHORUS 3.8 mg/dL (2.5-4.9); POTASSIUM 4.4 mmol/L (3.5-5.1)
[2021-08-02 06:48] LABS: B-TYPE NATRIURETIC PEPTIDE 70 pg/mL (0-100)
[2021-08-02 06:50] VITALS: BP 140/69
[2021-08-02 07:52] VITALS: BP 147/73
[2021-08-02] MEDS: SOLU-MEDROL 40MG VIAL IVP SCH ×2 (09:56→21:41)
[2021-08-02] MEDS: PANTOPRAZOLE 40 MG/VIAL IVP SCH (09:56)
[2021-08-02] MEDS: ENOXAPARIN SODIUM 40 MG/0.4 ML SYRINGE SQ SCH (09:57)
[2021-08-02 10:44] VITALS: BP 132/75
[2021-08-02] MEDS: CEFEPIME HCL 1 GM VIAL IVP SCH (12:11)
[2021-08-02] MEDS ORDERED: DOCUSATE PO PRN (14:30)
[2021-08-02] MEDS ORDERED: ALBUTEROL 0.083% 2.5 MG/3 ML INH IH PRN (14:30)
[2021-08-02] MEDS ORDERED: GUAIFENESIN SUGAR-FREE 100 MG/5 ML UDCUP PO PRN (14:30)
[2021-08-02] MEDS ORDERED: SENNOSIDES PO PRN (14:30)
[2021-08-02 15:52] VITALS: BP 139/73
[2021-08-02] MEDS: HYDROXYZINE 25 MG TABLET PO SCH (17:00)
[2021-08-02 19:00] VITALS: BP 132/74
[2021-08-02] MEDS ORDERED: ESOMEPRAZOLE MAGNESIUM 20 MG PO SCH (21:00)
[2021-08-02] MEDS: BENZONATATE 100 MG CAPSULE PO SCH (21:41)
[2021-08-02] MEDS: GABAPENTIN 100 MG CAPSULE PO SCH (21:41)
[2021-08-03] VITALS: BP 133/76
[2021-08-03] MEDS: IPRATROPIUM/ALBUTEROL SULFATE 3 ML SOLUTION IH SCH ×2 (00:36→06:21)
[2021-08-03 04:00] VITALS: BP 150/74
[2021-08-03 04:54] LABS: MEAN CORPUSCULAR HEMOGLOBIN 30.1 pg (27.0-33.0); MEAN CORPUSCULAR HGB CONC 32.9 g/dL (32.0-36.0); MEAN CORPUSCULAR VOLUME 91.6 fL (79-99); RED BLOOD CELL COUNT(AUTO) 4.15 MIL/uL (4.00-5.50); RED CELL DISTRIBUTION WIDTH 16.3 % (11.0-15.5); WHITE BLOOD COUNT (AUTO) 16.5 K/uL (4.8-10.8)
[2021-08-03 05:24] LABS: CREATININE 0.9 mg/dL (0.5-1.5); PHOSPHORUS 3.3 mg/dL (2.5-4.9); POTASSIUM 4.2 mmol/L (3.5-5.1)
[2021-08-03] MEDS: METRONIDAZOLE 500 MG TABLET PO SCH ×2 (06:17→14:50)
[2021-08-03] MEDS: HYDROXYZINE 25 MG TABLET PO SCH (06:18)
[2021-08-03] MEDS: VANCOMYCIN 500MG+NS 100ML IVPB IV SCH (06:18)
[2021-08-03] MEDS: INSULIN HUMULIN R 100 UNIT/ML 3ML SQ SCH ×2 (06:18→12:01)
[2021-08-03] MEDS ORDERED: LEVOTHYROXINE 25 MCG TABLET PO SCH (06:30)
[2021-08-03 07:49] VITALS: BP 144/71
[2021-08-03] MEDS ORDERED: PREDNISONE 10 MG TABLET PO SCH (09:00)
[2021-08-03] MEDS: [UNRECOGNIZED DRUG - OTHER] IH SCH ×2 (09:00→10:04)
[2021-08-03] MEDS: UMECLIDIN IH SCH ×2 (09:00→10:04)
[2021-08-03] MEDS: VILANTER IH SCH ×2 (09:00→10:04)
[2021-08-03] MEDS: FLUTICASONE IH SCH ×2 (09:00→10:04)
[2021-08-03] MEDS: PANTOPRAZOLE 40 MG/VIAL IVP SCH (10:03)
[2021-08-03] MEDS: BENZONATATE 100 MG CAPSULE PO SCH ×2 (10:03→14:51)
[2021-08-03] MEDS: ENOXAPARIN SODIUM 40 MG/0.4 ML SYRINGE SQ SCH (10:03)
[2021-08-03] MEDS: GABAPENTIN 100 MG CAPSULE PO SCH ×2 (10:03→14:51)
[2021-08-03 11:02] VITALS: BP 143/78
[2021-08-03] MEDS: CEFEPIME HCL 1 GM VIAL IVP SCH (12:01)
[2021-08-03 15:45] VITALS: BP 155/91
== END 2021-08-03 18:00 | disposition home or self-care (01) | DRG 871 ==
LOC: EDH 09:46 → INTOOBSV 12:16 → OBSVTOIN 12:16 → EDHIP 12:16 → 4CH 08-02 05:15
PROVIDERS: ADMIT Internal Medicine Critical Care Medicine; ATTEND Internal Medicine Critical Care Medicine
PROC: 5A09357 Assistance with Respiratory Ventilation, Less than 24 Consecutive Hours, Continuous Positive Airway Pressure (ICD-10-PCS; principal; 2021-08-01)
PROC: 5A09357 Assistance with Respiratory Ventilation, Less than 24 Consecutive Hours, Continuous Positive Airway Pressure (ICD-10-PCS; 2021-08-02)
PROC: 5A09357 Assistance with Respiratory Ventilation, Less than 24 Consecutive Hours, Continuous Positive Airway Pressure (ICD-10-PCS; 2021-08-03)
DX: A41.9 Sepsis, unspecified organism (principal); J96.21 Acute and chronic respiratory failure with hypoxia; J15.9 Unspecified bacterial pneumonia; J44.0 Chronic obstructive pulmonary disease with (acute) lower respiratory infection; J84.10 Pulmonary fibrosis, unspecified; D72.829 Elevated white blood cell count, unspecified; E03.9 Hypothyroidism, unspecified; E66.9 Obesity, unspecified; E78.00 Pure hypercholesterolemia, unspecified; G62.9 Polyneuropathy, unspecified; I10 Essential (primary) hypertension; K21.9 Gastro-esophageal reflux disease without esophagitis; Z20.822 Contact with and (suspected) exposure to COVID-19; Z68.27 Body mass index [BMI] 27.0-27.9, adult; Z79.51 Long term (current) use of inhaled steroids; Z79.890 Hormone replacement therapy; Z79.899 Other long term (current) drug therapy; Z88.0 Allergy status to penicillin; Z88.2 Allergy status to sulfonamides
CPT/HCPCS: 36415; 36600; 71045; 80048; 80053; 80202; 81001; 82435; 82550; 82803; 82947; 82948; 83605; 83735; 83874; 83880; 84100; 84132; 84145; 84295; 84443; 84484; 85018; 85025; 85027; 85378; 85610; 85730; 87040; 87071; 87077; 87088; 87186; 87205; 87635; 87804; 93005; 93970; 94640; 94660; 94664; 94667; 94668; C9113; G0378; J0692; J1650; J1815; J2920; J2930; J3370; J7030; J7050; J7512; Q9967

== ENCOUNTER 2021-09-03 09:19 | Inpatient (IN) | payer OTHER, MEDICARE ==
[~2021-09-03] VITALS: Ht 152.4 cm; Wt 88.9 kg
[~2021-09-03 09:19] MED LIST changes: -BISA5TAB12 PO; -FLUT1AER IH; +FLUT1BLS3 IH; -HYOS-14 PO; -LORA10TA7 PO; -MECL-226 PO; -MELO-106 PO; -NINT100C PO; -ONDA-104 PO; -SIME125C81 PO; -SIMV-43 PO; -vitamin b12 PO; -vitamin d3 PO
[2021-09-03] MEDS ORDERED: IPRATROPIUM/ALBUTEROL SULFATE 3 ML SOLUTION IH ONE (09:30)
[2021-09-03 09:53] LABS: BASOPHILS % (AUTO) 0.5 % (0.0-5.0); EOSINOPHILS % (AUTO) 4.4 % (0.0-8.0); HEMATOCRIT 46.9 % (36-48); LYMPHOCYTES % (AUTO) 13.4 % (21.0-51.0); MEAN CORPUSCULAR HEMOGLOBIN 30.1 pg (27.0-33.0); MEAN CORPUSCULAR HGB CONC 33.9 g/dL (32.0-36.0); MEAN CORPUSCULAR VOLUME 88.7 fL (79-99); MONOCYTES % (AUTO) 8.7 % (3.0-13.0); NEUTROPHILS % (AUTO) 71.7 % (40.0-77.0); PLATELET COUNT (AUTO) 291 K/uL (130-400); RED BLOOD CELL COUNT(AUTO) 5.29 MIL/uL (4.00-5.50); RED CELL DISTRIBUTION WIDTH 14.6 % (11.0-15.5)
[2021-09-03 09:53] LABS: ABG BASE EXCESS 1.3 mmol/L (-2.0-3.0); ABG OXYGEN SATURATION 68.5 % (95.0-99.0); ABG PCO2 33 mmHg (32-45)
[2021-09-03] MEDS ORDERED: 0.9%NACL 1000ML 1,000 ML IV ONE ×2 (10:00→10:03)
[2021-09-03 10:06] LABS: ALBUMIN 3.8 g/dL (3.5-5.0); BILIRUBIN,TOTAL 1.1 mg/dL (0.2-1.0); CREATININE 0.9 mg/dL (0.5-1.5); POTASSIUM 3.6 mmol/L (3.5-5.1); TOTAL PROTEIN, SERUM 7.2 g/dL (6.0-8.3)
[2021-09-03 10:16] LABS: B-TYPE NATRIURETIC PEPTIDE 47 pg/mL (0-100)
[2021-09-03] MEDS ORDERED: VANCOMYCIN 1G VIAL IVPB ONE (11:00)
[2021-09-03] MEDS ORDERED: VANCOMYCIN 1.5GM/NS 250ML IV SCH ×2 (11:00)
[2021-09-03] MEDS ORDERED: CEFEPIME HCL 2 GM VIAL IVP SCH (11:00)
[2021-09-03] MEDS: LACTATED RINGERS 1000ML 1,000 ML IV SCH ×2 (11:18→20:28)
[2021-09-03] MEDS ORDERED: ACETAMINOPHEN 650 MG SUPPOSITORY RC PRN (11:30)
[2021-09-03] MEDS: INSULIN HUMULIN R 100 UNIT/ML 3ML SQ SCH ×3 (11:30→21:00)
[2021-09-03] MEDS ORDERED: ONDANSETRON 4MG INJ IVP PRN (11:30)
[2021-09-03] MEDS ORDERED: LACTULOSE 20 GM/30 ML UDCUP PO PRN (11:30)
[2021-09-03] MEDS ORDERED: SOLU-MEDROL 40MG VIAL IVP SCH (12:00)
[2021-09-03 12:05] LABS: APPEARANCE,URINE Clear (CLEAR); BILIRUBIN,URINE Negative (NEGATIVE); COLOR,URINE Dark Yellow (YELLOW); GLUCOSE, URINE (UA) Negative (NEGATIVE); KETONES,URINE 40 mg/dL (NEGATIVE); LEUKOCYTE ESTERASE ,URINE Small (NEGATIVE); NITRATE,URINE Negative (NEGATIVE); OCCULT BLOOD,URINE Negative (NEGATIVE); PH,URINE 7.5 (5.0-8.0); PROTEIN,URINE Negative (NEGATIVE); UROBILINOGEN,URINE 0.2 mg/dL (0.2-1.0)
[2021-09-03] MEDS ORDERED: SODIUM CHLORIDE 3% FOR INHALATION 4 ML/AMP VIAL.NEB IH ONE ×3 (12:07→19:11)
[2021-09-03 12:16] LABS: BACTERIA,URINE Few /HPF (None Seen); RBC,URINE 0-1 /HPF (0-1)
[2021-09-03] MEDS: ACETAMINOPHEN 325 MG TAB PO PRN ×2 (12:21→20:27)
[2021-09-03] MEDS ORDERED: DOXY100V2 IV (13:21)
[2021-09-03] MEDS ORDERED: NITR-103 PO (13:22)
[2021-09-03] MEDS ORDERED: SIMV-43 PO (13:24)
[2021-09-03] MEDS ORDERED: [UNRECOGNIZED DRUG - CODE] PO (13:25)
[2021-09-03] MEDS ORDERED: AEC81 PO (13:26)
[2021-09-03] MEDS ORDERED: [UNRECOGNIZED DRUG - CODE] PO (13:28)
[2021-09-03] MEDS: IPRATROPIUM/ALBUTEROL SULFATE 3 ML SOLUTION IH SCH ×3 (14:45→22:31)
[2021-09-03] MEDS ORDERED: 0.9%NACL 50ML 50 ML IV ONE (15:45)
[2021-09-03] MEDS: CEFEPIME HCL 2 GM VIAL IVP SCH (15:55)
[2021-09-03] MEDS ORDERED: MORPHINE 4 MG SYG ONE (16:04)
[2021-09-03 17:12] VITALS: BP 145/94
[2021-09-03 19:14] VITALS: BP 152/104
[2021-09-03] MEDS ORDERED: 0.9% NACL 250ML 250 ML ONE (20:24)
[2021-09-03] MEDS: DOXYCYCLINE 100MG+NS 250ML 250 ML IV SCH (20:28)
[2021-09-03] MEDS ORDERED: DOXYCYCLINE 100MG+NS 250ML IV SCH (21:00)
[2021-09-03] MEDS: SOLU-MEDROL 40MG VIAL IVP SCH (21:43)
[2021-09-03 23:40] VITALS: BP 181/109
[2021-09-03] MEDS ORDERED: NINT100C PO (23:56)
[2021-09-03] MEDS ORDERED: ERGO50CA PO (23:56)
[2021-09-04] VITALS (7 sets, daily range): BP systolic 138–179; BP diastolic 62–95
[2021-09-04] MEDS ORDERED: HYDRALAZINE HCL 10 MG TABLET PO PRN (00:30)
[2021-09-04 00:51] LABS: ABG BASE EXCESS -0.6 mmol/L (-2.0-3.0); ABG HCO3 22.2 mmol/L (21.0-28.0); ABG OXYGEN SATURATION 97.2 % (95.0-99.0); ABG PCO2 32 mmHg (32-45)
[2021-09-04] MEDS: HYDRALAZINE 20MG/ML VIAL IV PRN ×2 (01:09→17:12)
[2021-09-04] MEDS: IPRATROPIUM/ALBUTEROL SULFATE 3 ML SOLUTION IH SCH ×6 (02:24→22:11)
[2021-09-04 04:10] LABS: MEAN CORPUSCULAR HEMOGLOBIN 29.8 pg (27.0-33.0); MEAN CORPUSCULAR HGB CONC 34.2 g/dL (32.0-36.0); MEAN CORPUSCULAR VOLUME 87.2 fL (79-99); RED BLOOD CELL COUNT(AUTO) 4.93 MIL/uL (4.00-5.50); RED CELL DISTRIBUTION WIDTH 14.3 % (11.0-15.5); WHITE BLOOD COUNT (AUTO) 11.9 K/uL (4.8-10.8)
[2021-09-04 04:27] LABS: ALBUMIN 3.1 g/dL (3.5-5.0); BILIRUBIN,TOTAL 0.7 mg/dL (0.2-1.0); CREATININE 0.7 mg/dL (0.5-1.5); MAGNESIUM 1.8 mg/dL (1.80-2.40); PHOSPHORUS 2.9 mg/dL (2.5-4.9); POTASSIUM 3.8 mmol/L (3.5-5.1); TOTAL PROTEIN, SERUM 6.3 g/dL (6.0-8.3)
[2021-09-04] MEDS: CEFEPIME HCL 2 GM VIAL IVP SCH ×2 (06:03→15:49)
[2021-09-04] MEDS: SOLU-MEDROL 40MG VIAL IVP SCH ×3 (06:04→20:55)
[2021-09-04] MEDS: LACTATED RINGERS 1000ML 1,000 ML IV SCH (06:04)
[2021-09-04] MEDS: INSULIN HUMULIN R 100 UNIT/ML 3ML SQ SCH ×4 (06:04→22:56)
[2021-09-04] MEDS: 0.9%NACL 1000ML 1,000 ML IV SCH ×2 (06:35→15:49)
[2021-09-04] MEDS: ACETAMINOPHEN 325 MG TAB PO PRN ×3 (08:42→23:08)
[2021-09-04] MEDS: PANTOPRAZOLE 40 MG TAB DR PO SCH (08:43)
[2021-09-04] MEDS: DOXYCYCLINE 100MG+NS 250ML 250 ML IV SCH ×2 (08:44→20:38)
[2021-09-04] MEDS: ENOXAPARIN SODIUM 30 MG/0.3 ML SQ SCH (08:44)
[2021-09-04] MEDS: LEVOFLOXACIN 500 MG/D5W 100 ML 100 ML IV SCH (09:57)
[2021-09-04] MEDS ORDERED: LEVOFLOXACIN 500 MG/D5W 100 ML IV SCH (10:00)
[2021-09-04] MEDS ORDERED: NACL NASAL SPRAY 120 SPRAY/BOTTLE NS PRN (12:00)
[2021-09-04] MEDS ORDERED: CALCIUM CARB 500MG CHEW TAB PO SCH (17:30)
[2021-09-04] MEDS ORDERED: PHARMACY COMMUNICATION MISC SCH (17:30)
[2021-09-04] MEDS ORDERED: LIDO 2% VISC 30ML+MAG/AL/SIMETH 30ML+DICYCLOMINE 20MG 10ML PO SCH ×3 (18:00)
[2021-09-04] MEDS ORDERED: COMPOUND PO MISCELLANEOUS 1 EACH MISC MISC PRN (18:00)
[2021-09-05] MEDS: IPRATROPIUM/ALBUTEROL SULFATE 3 ML SOLUTION IH SCH ×6 (02:41→23:46)
[2021-09-05] MEDS: CEFEPIME HCL 2 GM VIAL IVP SCH ×2 (03:53→14:24)
[2021-09-05 03:54] VITALS: BP 155/84
[2021-09-05 04:11] LABS: HEMATOCRIT 37.4 % (36-48); MEAN CORPUSCULAR HEMOGLOBIN 30.3 pg (27.0-33.0); MEAN CORPUSCULAR HGB CONC 35.3 g/dL (32.0-36.0); MEAN CORPUSCULAR VOLUME 85.8 fL (79-99); RED BLOOD CELL COUNT(AUTO) 4.36 MIL/uL (4.00-5.50); RED CELL DISTRIBUTION WIDTH 14.6 % (11.0-15.5); WHITE BLOOD COUNT (AUTO) 13.1 K/uL (4.8-10.8)
[2021-09-05 04:17] LABS: ALBUMIN 2.9 g/dL (3.5-5.0); BILIRUBIN,TOTAL 0.5 mg/dL (0.2-1.0); CREATININE 0.8 mg/dL (0.5-1.5); MAGNESIUM 1.8 mg/dL (1.80-2.40); POTASSIUM 3.7 mmol/L (3.5-5.1); TOTAL PROTEIN, SERUM 5.7 g/dL (6.0-8.3)
[2021-09-05] MEDS: 0.9%NACL 1000ML 1,000 ML IV SCH ×2 (05:36→16:58)
[2021-09-05] MEDS: SOLU-MEDROL 40MG VIAL IVP SCH ×3 (05:39→22:10)
[2021-09-05] MEDS: INSULIN HUMULIN R 100 UNIT/ML 3ML SQ SCH ×4 (06:05→21:57)
[2021-09-05 07:20] VITALS: BP 143/81
[2021-09-05] MEDS ORDERED: ERGOCALCIFEROL (VITAMIN D2) 50,000 UNIT CAPSULE PO SCH (09:00)
[2021-09-05] MEDS ORDERED: ASPIRIN 81 MG EC TAB PO SCH (09:00)
[2021-09-05] MEDS ORDERED: RELIEF PO SCH (09:00)
[2021-09-05] MEDS: OFEV 100 MG PO SCH (09:00)
[2021-09-05] MEDS: GABAPENTIN 100 MG CAPSULE PO SCH ×3 (10:57→22:09)
[2021-09-05] MEDS: ENOXAPARIN SODIUM 30 MG/0.3 ML SQ SCH (10:57)
[2021-09-05] MEDS: LEVOFLOXACIN 500 MG/D5W 100 ML 100 ML IV SCH (10:57)
[2021-09-05] MEDS: LEVOTHYROXINE 25 MCG TABLET PO SCH (10:58)
[2021-09-05] MEDS: HYDROXYZINE 25 MG TABLET PO SCH ×2 (10:58→16:56)
[2021-09-05] MEDS: PANTOPRAZOLE 40 MG TAB DR PO SCH (10:59)
[2021-09-05] MEDS: DOXYCYCLINE 100MG+NS 250ML 250 ML IV SCH ×2 (11:00→22:10)
[2021-09-05] MEDS: BENZONATATE 100 MG CAPSULE PO SCH ×3 (11:00→22:09)
[2021-09-05 11:30] VITALS: BP 139/75
[2021-09-05 18:33] VITALS: BP 135/59
[2021-09-05 19:37] LABS: POTASSIUM 3.6 mmol/L (3.5-5.1)
[2021-09-05] MEDS ORDERED: FUROSEMIDE 40MG VIAL IV ONE (20:00)
[2021-09-05 20:50] VITALS: BP 143/73
[2021-09-05] MEDS ORDERED: 0.9% NACL 250ML 250 ML ONE (22:02)
[2021-09-05] MEDS ORDERED: FUROSEMIDE 40MG VIAL ONE (22:04)
[2021-09-05] MEDS: SIMVASTATIN 20 MG TABLET PO SCH (22:09)
[2021-09-05 23:44] VITALS: BP 130/80
[2021-09-06 03:10] VITALS: BP 126/75
[2021-09-06 05:09] LABS: ALBUMIN 2.9 g/dL (3.5-5.0); BILIRUBIN,TOTAL 0.5 mg/dL (0.2-1.0); POTASSIUM 3.6 mmol/L (3.5-5.1); THYROID STIMULATING HORMONE 0.5 uIU/mL (0.36-3.74); TOTAL PROTEIN, SERUM 5.8 g/dL (6.0-8.3)
[2021-09-06] MEDS: INSULIN HUMULIN R 100 UNIT/ML 3ML SQ SCH ×4 (06:32→20:39)
[2021-09-06] MEDS: IPRATROPIUM/ALBUTEROL SULFATE 3 ML SOLUTION IH SCH ×4 (06:46→23:13)
[2021-09-06 08:01] VITALS: BP 144/67
[2021-09-06] MEDS: ENOXAPARIN SODIUM 30 MG/0.3 ML SQ SCH (11:18)
[2021-09-06] MEDS: PANTOPRAZOLE 40 MG TAB DR PO SCH (11:23)
[2021-09-06] MEDS: LEVOTHYROXINE 25 MCG TABLET PO SCH (11:23)
[2021-09-06] MEDS: HYDROXYZINE 25 MG TABLET PO SCH ×2 (11:23→16:08)
[2021-09-06] MEDS: GABAPENTIN 100 MG CAPSULE PO SCH ×3 (11:23→20:38)
[2021-09-06] MEDS: BENZONATATE 100 MG CAPSULE PO SCH ×3 (11:24→20:38)
[2021-09-06] MEDS: SOLU-MEDROL 40MG VIAL IVP SCH ×2 (11:24→20:38)
[2021-09-06] MEDS: DOXYCYCLINE 100MG+NS 250ML 250 ML IV SCH ×2 (11:24→20:38)
[2021-09-06] MEDS: LEVOFLOXACIN 500 MG/D5W 100 ML 100 ML IV SCH (11:25)
[2021-09-06] MEDS: OFEV 100 MG PO SCH (11:35)
[2021-09-06 11:53] VITALS: BP 135/67
[2021-09-06] MEDS ORDERED: 0.9% NACL 250ML 250 ML ONE (12:34)
[2021-09-06 16:02] VITALS: BP 142/82
[2021-09-06 19:55] VITALS: BP 141/66
[2021-09-06] MEDS: SIMVASTATIN 20 MG TABLET PO SCH (20:38)
[2021-09-06] MEDS: 0.9%NACL 1000ML 1,000 ML IV SCH (20:38)
[2021-09-06 23:47] VITALS: BP 154/86
[2021-09-07 04:05] VITALS: BP 144/86
[2021-09-07] MEDS: INSULIN HUMULIN R 100 UNIT/ML 3ML SQ SCH ×4 (06:04→21:13)
[2021-09-07] MEDS: HYDROXYZINE 25 MG TABLET PO SCH ×2 (06:26→16:06)
[2021-09-07 06:45] LABS: BASOPHILS % (AUTO) 0.2 % (0.0-5.0); HEMATOCRIT 36.6 % (36-48); LYMPHOCYTES % (AUTO) 6.8 % (21.0-51.0); MEAN CORPUSCULAR HEMOGLOBIN 30.1 pg (27.0-33.0); MEAN CORPUSCULAR HGB CONC 33.9 g/dL (32.0-36.0); MEAN CORPUSCULAR VOLUME 88.8 fL (79-99); MONOCYTES % (AUTO) 6.3 % (3.0-13.0); NEUTROPHILS % (AUTO) 84.8 % (40.0-77.0); PLATELET COUNT (AUTO) 226 K/uL (130-400); RED BLOOD CELL COUNT(AUTO) 4.12 MIL/uL (4.00-5.50); RED CELL DISTRIBUTION WIDTH 15.1 % (11.0-15.5); WHITE BLOOD COUNT (AUTO) 12.7 K/uL (4.8-10.8)
[2021-09-07 06:57] LABS: MAGNESIUM 1.8 mg/dL (1.80-2.40); PHOSPHORUS 2.9 mg/dL (2.5-4.9)
[2021-09-07] MEDS: IPRATROPIUM/ALBUTEROL SULFATE 3 ML SOLUTION IH SCH ×3 (07:52→19:30)
[2021-09-07 08:26] VITALS: BP 153/77
[2021-09-07] MEDS: BENZONATATE 100 MG CAPSULE PO SCH ×3 (09:00→21:00)
[2021-09-07] MEDS: ENOXAPARIN SODIUM 30 MG/0.3 ML SQ SCH (10:12)
[2021-09-07] MEDS: GABAPENTIN 100 MG CAPSULE PO SCH ×3 (10:12→21:15)
[2021-09-07] MEDS: PANTOPRAZOLE 40 MG TAB DR PO SCH (10:13)
[2021-09-07] MEDS: DOXYCYCLINE 100MG+NS 250ML 250 ML IV SCH ×2 (10:13→21:15)
[2021-09-07] MEDS: LEVOTHYROXINE 25 MCG TABLET PO SCH (10:13)
[2021-09-07] MEDS: LEVOFLOXACIN 500 MG/D5W 100 ML 100 ML IV SCH (10:13)
[2021-09-07] MEDS: SOLU-MEDROL 40MG VIAL IVP SCH ×2 (10:18→21:17)
[2021-09-07] MEDS: OFEV 100 MG PO SCH (10:24)
[2021-09-07] MEDS ORDERED: POLYETHYLENE GLYCOL 3350 17 GM POWD.PACK PO SCH (11:00)
[2021-09-07] MEDS ORDERED: SENNOSIDES 8.6 MG TABLET PO SCH (11:00)
[2021-09-07] MEDS ORDERED: DOCUSATE SODIUM 100 MG CAP PO SCH (11:00)
[2021-09-07] MEDS ORDERED: SENNOSIDES 8.6 MG TABLET PO PRN (11:00)
[2021-09-07 11:43] VITALS: BP 139/78
[2021-09-07] MEDS ORDERED: LACTULOSE 20 GM/30 ML UDCUP PO PRN (12:00)
[2021-09-07] MEDS: LACTULOSE 20 GM/30 ML UDCUP PO SCH ×3 (12:29→21:14)
[2021-09-07] MEDS: 0.9%NACL 1000ML 1,000 ML IV SCH (16:05)
[2021-09-07 16:27] VITALS: BP 151/80
[2021-09-07 20:00] VITALS: BP 162/81
[2021-09-07] MEDS ORDERED: POTASSIUM CHLORIDE 10% ELIXIR 20 MEQ/15 ML UDCUP PO PRN (20:30)
[2021-09-07] MEDS ORDERED: MAGNESIUM 2GM PREMIX 50ML 50 ML IV PRN (20:30)
[2021-09-07] MEDS ORDERED: LIDOCAINE HCL-MPF 1% 2ML VIAL IV PRN (20:30)
[2021-09-07] MEDS ORDERED: POTASSIUM CHLORIDE 20MEQ/100ML 100 ML IV PRN (20:30)
[2021-09-07] MEDS: DOCUSATE SODIUM 100 MG CAP PO SCH (21:15)
[2021-09-07] MEDS: KCL 20 MEQ ERTAB PO PRN ×2 (21:15→23:07)
[2021-09-07] MEDS: SIMVASTATIN 20 MG TABLET PO SCH (21:15)
[2021-09-07] MEDS ORDERED: PRED20TA3 PO (22:47)
[2021-09-07] MEDS ORDERED: LEVO500T90 PO (22:47)
[2021-09-07] MEDS ORDERED: DOXY100C5 PO (22:47)
[2021-09-07] MEDS ORDERED: ALBU2.5V2 IH (22:49)
[2021-09-07 23:46] VITALS: BP 149/101
[2021-09-08] MEDS: IPRATROPIUM/ALBUTEROL SULFATE 3 ML SOLUTION IH SCH ×2 (00:20→07:22)
[2021-09-08] MEDS: LACTULOSE 20 GM/30 ML UDCUP PO SCH ×3 (00:54→09:46)
[2021-09-08] MEDS: KCL 20 MEQ ERTAB PO PRN (00:54)
[2021-09-08 04:15] VITALS: BP 168/92
[2021-09-08 04:16] LABS: BASOPHILS % (AUTO) 0.5 % (0.0-5.0); HEMATOCRIT 39.3 % (36-48); LYMPHOCYTES % (AUTO) 6.1 % (21.0-51.0); MEAN CORPUSCULAR HEMOGLOBIN 30.1 pg (27.0-33.0); MEAN CORPUSCULAR HGB CONC 32.8 g/dL (32.0-36.0); MEAN CORPUSCULAR VOLUME 91.6 fL (79-99); MONOCYTES % (AUTO) 4.1 % (3.0-13.0); NEUTROPHILS % (AUTO) 85.6 % (40.0-77.0); PLATELET COUNT (AUTO) 243 K/uL (130-400); RED BLOOD CELL COUNT(AUTO) 4.29 MIL/uL (4.00-5.50); RED CELL DISTRIBUTION WIDTH 15.3 % (11.0-15.5); WHITE BLOOD COUNT (AUTO) 12.9 K/uL (4.8-10.8)
[2021-09-08 04:29] LABS: CREATININE 0.9 mg/dL (0.5-1.5); MAGNESIUM 2.7 mg/dL (1.80-2.40); POTASSIUM 4.4 mmol/L (3.5-5.1)
[2021-09-08] MEDS: INSULIN HUMULIN R 100 UNIT/ML 3ML SQ SCH (05:56)
[2021-09-08] MEDS: HYDROXYZINE 25 MG TABLET PO SCH (06:14)
[2021-09-08] MEDS ORDERED: LEVOTHYROXINE 25 MCG TABLET PO SCH (06:30)
[2021-09-08 07:00] VITALS: BP 158/86
[2021-09-08] MEDS ORDERED: POLYETHYLENE GLYCOL 3350 17 GM POWD.PACK PO SCH (09:00)
[2021-09-08] MEDS ORDERED: 0.9% NACL 250ML 250 ML ONE (09:20)
[2021-09-08] MEDS: DOXYCYCLINE 100MG+NS 250ML 250 ML IV SCH (09:43)
[2021-09-08] MEDS: DOCUSATE SODIUM 100 MG CAP PO SCH (09:43)
[2021-09-08] MEDS: GABAPENTIN 100 MG CAPSULE PO SCH (09:43)
[2021-09-08] MEDS: BENZONATATE 100 MG CAPSULE PO SCH (09:44)
[2021-09-08] MEDS: LEVOFLOXACIN 500 MG/D5W 100 ML 100 ML IV SCH (09:44)
[2021-09-08] MEDS: ENOXAPARIN SODIUM 30 MG/0.3 ML SQ SCH (09:44)
[2021-09-08] MEDS: PANTOPRAZOLE 40 MG TAB DR PO SCH (09:44)
[2021-09-08] MEDS: SOLU-MEDROL 40MG VIAL IVP SCH (09:44)
[2021-09-08] MEDS: OFEV 100 MG PO SCH (09:54)
[2021-09-08 19:27] VITALS: BP 159/97
== END 2021-09-08 11:10 | disposition home or self-care (01) | DRG 193 ==
LOC: EDH 09:19 → EDHIP 11:03 → 2AH 15:36
PROVIDERS: ADMIT Internal Medicine Critical Care Medicine; ATTEND Internal Medicine Critical Care Medicine
PROC: 5A09357 Assistance with Respiratory Ventilation, Less than 24 Consecutive Hours, Continuous Positive Airway Pressure (ICD-10-PCS; principal; 2021-09-03)
PROC: 5A09357 Assistance with Respiratory Ventilation, Less than 24 Consecutive Hours, Continuous Positive Airway Pressure (ICD-10-PCS; 2021-09-04)
PROC: 5A09357 Assistance with Respiratory Ventilation, Less than 24 Consecutive Hours, Continuous Positive Airway Pressure (ICD-10-PCS; 2021-09-05)
PROC: 5A09357 Assistance with Respiratory Ventilation, Less than 24 Consecutive Hours, Continuous Positive Airway Pressure (ICD-10-PCS; 2021-09-06)
PROC: 5A09357 Assistance with Respiratory Ventilation, Less than 24 Consecutive Hours, Continuous Positive Airway Pressure (ICD-10-PCS; 2021-09-07)
DX: J18.9 Pneumonia, unspecified organism (principal); J96.21 Acute and chronic respiratory failure with hypoxia; E22.2 Syndrome of inappropriate secretion of antidiuretic hormone; J44.0 Chronic obstructive pulmonary disease with (acute) lower respiratory infection; J84.10 Pulmonary fibrosis, unspecified; E03.9 Hypothyroidism, unspecified; Z20.822 Contact with and (suspected) exposure to COVID-19; K21.9 Gastro-esophageal reflux disease without esophagitis; Z68.32 Body mass index [BMI] 32.0-32.9, adult; E66.9 Obesity, unspecified; G62.9 Polyneuropathy, unspecified; I10 Essential (primary) hypertension; J98.4 Other disorders of lung; D64.9 Anemia, unspecified; E78.00 Pure hypercholesterolemia, unspecified; G47.33 Obstructive sleep apnea (adult) (pediatric); E78.5 Hyperlipidemia, unspecified; Y95 Nosocomial condition; Z88.0 Allergy status to penicillin; Z88.2 Allergy status to sulfonamides; Z79.899 Other long term (current) drug therapy; Z99.81 Dependence on supplemental oxygen; Z79.890 Hormone replacement therapy; Z87.891 Personal history of nicotine dependence; Z83.3 Family history of diabetes mellitus; Z81.1 Family history of alcohol abuse and dependence; Z80.8 Family history of malignant neoplasm of other organs or systems; Z83.79 Family history of other diseases of the digestive system; Z82.5 Family history of asthma and other chronic lower respiratory diseases
CPT/HCPCS: 36415; 36600; 71045; 71250; 80048; 80053; 81001; 82435; 82533; 82803; 82947; 82948; 83605; 83735; 83880; 83930; 83935; 84100; 84132; 84145; 84295; 84300; 84443; 84484; 85018; 85025; 85027; 87040; 87088; 87635; 87804; 93005; 94640; 94660; 94664; 94667; 94668; 97039; 99291; C9803; G0378; J0360; J0692; J1650; J1815; J1940; J1956; J2270; J2405; J2920; J3370; J3475; J3490; J7030; J7050; J7120